=== PATIENT | male | born 1965 | race Caucasian/White ===

== ENCOUNTER 2016-06-17 19:37 | Emergency (ER) | payer BC ==
[2016-06-17] MEDS ORDERED: KETOROLAC TROMETHAMINE 0.45% 4 DROP/0.4 ML DROPERETTE OS ONE (21:19)
[2016-06-17] MEDS ORDERED: ERYTHROMYCIN 0.5% OPH OINTMENT 3.5 GM TUBE OS ONE (21:40)
--- NOTE | 2016-06-17 21:43 | ER Document Report ---
HPI - HPI Patient complains to provider of: left eye irritation Onset: This morning Onset/Duration: Sudden Quality of pain: Achy Severity: Severe Pain Level: 5 Context: Patient presents emergency department with complaints of left eye irritation. Patient reports he was working on his car with goggles on this morning. He removed the goggles something fell in his eye. He is not sure if it paint dirt or rust. Patient denies wearing contacts. Patient reports he went to urgent care where they were unable to see anything in his eye. They did stain his eye and placed him on eyedrops. He reports he had extreme pain when he left the urgent care so he came to the emergency department. Associated Symptoms: None Exacerbated by: Denies Relieved by: Denies Similar symptoms previously: Yes Recently seen / treated by doctor: Yes - DERM Skin Color: Normal Past Medical History - General Information source: Patient - Social History Smoking Status: Current Every Day Smoker Cigarette use (# per day): Yes Frequency of alcohol use: Occasional Drug Abuse: None Lives with: Family Family History: None - Past Medical History Cardiac Medical History: Reports: Hx Hypertension Renal/ Medical History: Reports: Hx Kidney Stones. Denies: Hx Peritoneal Dialysis Past Surgical History: Reports: Hx Orthopedic Surgery, Other - Lithotripsy Vertical Provider Document - CONSTITUTIONAL Agree With Documented VS: Yes Exam Limitations: No Limitations General Appearance: WD/WN, Mild Distress - rinsing his eye in the sink - HEENT HEENT: Atraumatic, Conjuctival Injection, Normocephalic, PERRLA - NECK Neck: Normal Inspection, Supple - RESPIRATORY Respiratory: Breath Sounds Normal, No Respiratory Distress O2 Sat by Pulse Oximetry: 98 - CARDIOVASCULAR Cardiovascular: Regular Rate - GI/ABDOMEN Gastrointestinal: Abdomen Soft - MUSCULOSKELETAL/EXTREMETIES Musculoskeletal/Extremeties: PAMELLA PRINCE - NEURO Level of Consciousness: Awake, Alert, Appropriate Motor/Sensory: No Motor Deficit - DERM Integumentary: Warm, Dry Course - Re-evaluation Re-evalutation: 06/18/16 Patient was allergic ketorolac drops for pain. Which did not help. He declined pain medication. He reports his eye started hurting once the tetracaine wore off. Dr. Desai was consulted. She did assess patient, agrees with plan of care patient to be discharged with erythromycin eye ointment instructed pt to place ice packs on eye follow-up with accountant on Sunday. He verbalized understanding to all instructions. - Vital Signs Vital signs: Temp Pulse Resp BP Pulse Ox 98.6 F 74 16 169/110 H 98 06/17/16 19:44 06/17/16 19:44 06/17/16 19:44 06/17/16 19:44 06/17/16 19:44 Procedures - Eye Procedure Left Eye Irrigated w/ Saline (ccs): 30 Acular drops administered: Left Fluorescein applied: Left Antibiotic Oinment/Drps Admin: Left eye Slit lamp used: No Notes: 06/17/16 23:59 pt reports immediate relief from pain after tetracaine applied. reports pain gone after lifting eyelid away from eye Eyes picture: 1 - some eyelid swelling Discharge - Discharge Clinical Impression: Irritation of left eye Condition: Stable Disposition: HOME, SELF-CARE Instructions: Ketorolac Tromethamine Eye Drops ([facility]), Erythromycin ([facility]), Opthalmology Additional Instructions: *You have been evaluated for eye irritation *Use eye ointment antibiotic- erythromycin half-inch ribbon 3 times a day to bottom lid *Ketorolac eyedrops 4 times a day *Good hand washing- Do not reuse wash clothes or towels after wiping eyes *Follow up with an accountant on Sunday *Return to ED for worsening condition, changes, needs, trouble with your vision , increased pain, redness/swelling to your eye Prescriptions: Erythromycin Base [Erythromycin 0.5% Oph Ointment 3.5 gm] 1 applic OS QID #1 tube
[2016-06-17] MEDS ORDERED: ERYTHROMYCIN 0.5% OPH OINT 1 GM UNIT DOSE OS ONE (22:08)
[2016-06-17 22:34] VITALS: BP 153/102
== END 2016-06-17 22:34 | disposition home or self-care (01) ==
LOC: ER 19:37
DX: H57.12 Ocular pain, left eye (principal); R22.0 Localized swelling, mass and lump, head; F17.210 Nicotine dependence, cigarettes, uncomplicated; I10 Essential (primary) hypertension; Z88.8 Allergy status to other drugs, medicaments and biological substances
CPT/HCPCS: 99283; J3490

== ENCOUNTER 2019-05-29 19:31 | Emergency (ER) | payer BC ==
[2019-05-29] MEDS ORDERED: KETOROLAC TROMETHAMINE INJ/PF 30 MG/1 ML SDV IV ONE (19:50)
[2019-05-29] MEDS ORDERED: ONDANSETRON HCL INJ/PF 4 MG/2 ML SDV IV ONE (19:50)
--- NOTE | 2019-05-29 19:51 | ER Document Report ---
ED Medical Screen (RME) - General Stated Complaint: FLANK PAIN Notes: Patient is a 53-year-old white male with a past medical history of renal calculi who presents to the emergency department the chief complaint of right flank pain. He states he is passed over 100 stones and that this feels the exact same. He admits to having a history of lithotripsy but no other urological intervention. He does see a urologist regularly. Request Toradol, states this typically works well for him. I have treated and performed a rapid initial assessment of this patient. A comprehensive ED assessment and evaluation of the patient, analysis of test results and completion of medical decision making process will be conducted by additional ED providers. PHYSICAL EXAMINATION: GENERAL: Well-appearing, well-nourished and in no acute distress. A&Ox4. Answers questions appropriately. - Related Data Allergies/Adverse Reactions: adhesive tape Allergy (Verified 06/17/16 19:44) aspirin Allergy (Verified 06/17/16 19:44) Past Medical History - Past Medical History Cardiac Medical History: Reports: Hx Hypertension Renal/ Medical History: Reports: Hx Kidney Stones. Denies: Hx Peritoneal Dialysis Past Surgical History: Reports: Hx Orthopedic Surgery, Other - Lithotripsy Physical Exam - Vital signs Vitals: Temp Pulse Resp BP Pulse Ox 97.4 F 59 L 18 187/111 H 100 05/29/19 19:36 05/29/19 19:36 05/29/19 19:36 05/29/19 19:36 05/29/19 19:36 Course - Vital Signs Vital signs: Temp Pulse Resp BP Pulse Ox 97.4 F 59 L 18 187/111 H 100 05/29/19 19:36 05/29/19 19:36 05/29/19 19:36 05/29/19 19:36 05/29/19 19:36
[2019-05-29 20:22] LABS: ABSOLUTE EOSINOPHILS # (AUTO) 0.2 10^3/uL (0.0-0.6); ABSOLUTE LYMPHOCYTES (AUTO) 2.2 10^3/uL (0.5-4.7); ABSOLUTE MONOCYTES (AUTO) 0.8 10^3/uL (0.1-1.4); ABSOLUTE NEUT (AUTO) 5.5 10^3/uL (1.7-8.2); BASOPHILS % (AUTO) 0.3 % (0-2); HEMATOCRIT 41.1 % (37.9-51.0); HEMOGLOBIN 14.3 g/dL (13.5-17.0); LYMPHOCYTES % (AUTO) 25.3 % (13-45); MEAN CORPUSCULAR HEMOGLOBIN 33.5 pg (27.0-33.4); MEAN CORPUSCULAR HGB CONC 34.7 g/dL (32.0-36.0); MEAN CORPUSCULAR VOLUME 97 fl (80-97); MONOCYTES % (AUTO) 9.4 % (3-13); PLATELET COUNT 245 10^3/uL (150-450); RED BLOOD COUNT 4.25 10^6/uL (4.35-5.55); RED CELL DISTRIBUTION WIDTH 13.1 % (11.5-14.0); TOTAL CELLS COUNTED % (AUTO) 100 %; WHITE BLOOD COUNT 8.8 10^3/uL (4.0-10.5)
[2019-05-29 20:29] LABS: APPEARANCE,URINE CLOUDY; BILIRUBIN,URINE NEGATIVE (NEGATIVE); COLOR,URINE YELLOW; GLUCOSE, URINE NEGATIVE (NEGATIVE); KETONES,URINE NEGATIVE (NEGATIVE); PROTEIN,URINE NEGATIVE (NEGATIVE); URINE SPECIFIC GRAVITY 1.018; UROBILINOGEN,URINE NEGATIVE mg/dL (<2.0)
[2019-05-29 20:39] LABS: ALBUMIN 4.7 g/dL (3.5-5.0); ALKALINE PHOSPHATASE 64 U/L (38-126); ANION GAP 8 (5-19); ASPARTATE AMINO TRANSFERASE 24 U/L (17-59); BILIRUBIN,TOTAL 0.3 mg/dL (0.2-1.3); BLOOD UREA NITROGEN 18 mg/dL (7-20); CALCIUM 9.9 mg/dL (8.4-10.2); CARBON DIOXIDE 30 mmol/L (22-30); CHLORIDE 101 mmol/L (98-107); GLUCOSE 115 mg/dL (75-110); POTASSIUM 4.4 mmol/L (3.6-5.0); TOTAL PROTEIN 7.8 g/dL (6.3-8.2)
--- NOTE | 2019-05-29 21:01 | RADIOLOGY REPORT (SQ) ---
EXAM DESCRIPTION: CLINICAL HISTORY: 53 years Male r flank pain COMPARISON: None. TECHNIQUE: Contiguous axial images obtained through the abdomen and pelvis without IV contrast. Reformatted images obtained. This exam was performed according to our department optimization program which includes automated exposure control, adjustment of the mA and/or kv according to patient size and/or use of iterative reconstruction technique. FINDINGS: The lung bases are clear. The liver appears unremarkable. The spleen and pancreas appear unremarkable. No adrenal masses. Tiny nonobstructing left renal calculi. Moderate right hydronephrosis with perinephric edema. There is a stone in the distal ureter on the right measuring 3 mm which is nonobstructing and an additional distal stone measuring 9 mm resulting in obstruction. Bladder is incompletely distended. The gallbladder is visualized. No aneurysmal dilatation of the aorta. No bowel obstruction. No free pelvic fluid. Unremarkable appendix. IMPRESSION: Moderate right hydronephrosis with an obstructing 9 mm distal stone and an additional nonobstructing 3 mm stone just cephalad Nonobstructing tiny left renal stones
[2019-05-29] MEDS ORDERED: HYDROMORPHONE HCL INJ/PF 2 MG/ML AMPULE IV ONE (21:52)
--- NOTE | 2019-05-29 21:53 | ER Document Report ---
ED GI/ - General Chief Complaint: Possible Kidney Stone Stated Complaint: FLANK PAIN Time Seen by Provider: 05/29/19 21:26 Mode of Arrival: Ambulatory Information source: Patient Notes: 53-year-old man presents to the emergency department with a history of right flank pain, he has a history of kidney stones. States that he has had multiple kidney stones in the past this episode began earlier tonight. - Related Data Allergies/Adverse Reactions: adhesive tape Allergy (Verified 05/29/19 19:56) morphine Allergy (Verified 05/29/19 19:56) Home Medications: percocet. flexeril. flomax. lisinopril Past Medical History - Social History Smoking Status: Never Smoker Family History: None Patient has suicidal ideation: No Patient has homicidal ideation: No - Past Medical History Cardiac Medical History: Reports: Hx Hypertension Renal/ Medical History: Reports: Hx Kidney Stones. Denies: Hx Peritoneal Dialysis Past Surgical History: Reports: Hx Orthopedic Surgery, Other - Lithotripsy Review of Systems - Review of Systems Notes: Constitutional: Negative for fever. HENT: Negative for sore throat. Eyes: Negative for visual changes. Cardiovascular: Negative for chest pain. Respiratory: Negative for shortness of breath. Gastrointestinal: Negative for abdominal pain, vomiting or diarrhea. Genitourinary: + Right flank pain Musculoskeletal: Negative for back pain. Skin: Negative for rash. Neurological: Negative for headaches, weakness or numbness. 10 point ROS negative except as marked above and in HPI. Physical Exam - Vital signs Vitals: Temp Pulse Resp BP Pulse Ox 97.4 F 59 L 18 187/111 H 100 05/29/19 19:36 05/29/19 19:36 05/29/19 19:36 05/29/19 19:36 05/29/19 19:36 - Notes Notes: PHYSICAL EXAMINATION: Physical Exam: General: Well-nourished well-developed 83-year-old man in moderate distress secondary to flank pain i HEENT: NC/AT, pupils equal round and reactive to light, MM moist,nares clear, oropharynx clear, airway patent Neck: supple, no adenopathy, no masses. Good range of motion Lungs: clear, no wheezing, no rales no rhonchi CVS: Regular rate and rhythm no murmur gallop or rub Abdomen: Soft, active, nontender, no masses, no hepatosplenomegaly Back: + Right flank tenderness. Ext: No edema, clubbing or cyanosis. Neuro: Alert and responsive, moving all 4 extremities on command, cranial nerves intact, no focal findings Skin: Intact no open lesions, no rash PSYCH: Normal mood, normal affect. Course - Re-evaluation Re-evalutation: 05/29/19 23:12 Patient presents with right flank pain. Apparently ongoing for approximately 1 week. X-ray studies reveal a 9 mm right ureter stone with hydronephrosis. I explained this finding to the patient and also the other nonpathologic stones found on imaging. Patient will need follow-up with urology, continue to Flomax and anti-inflammatory medications as prescribed. - Vital Signs Vital signs: Temp Pulse Resp BP Pulse Ox 97.4 F 59 L 18 187/111 H 100 05/29/19 19:36 05/29/19 19:36 05/29/19 19:36 05/29/19 19:36 05/29/19 19:36 - Laboratory Result Diagrams: 05/29/19 20:05 05/29/19 20:05 Laboratory results interpreted by me: 05/29/19 05/29/19 20:05 20:05 RBC 4.25 L MCH 33.5 H Glucose 115 H - Diagnostic Test Radiology reviewed: Image reviewed, Reports reviewed - Moderate right hydronephrosis with obstructing 9 mm distal stone and additional nonobstructing 3 mm stone is just cephalad. There are nonobstructing stones noted in the left renal tissue. Discharge - Discharge Clinical Impression: Right flank pain, Renal stone, Hydronephrosis of right kidney Condition: Good Disposition: HOME, SELF-CARE Instructions: Toradol Injection ([facility]), Antinausea Medication ([facility]), Oral Narcotic Medication ([facility]), Kidney Stone ([facility]) Additional Instructions: You are diagnosed with a kidney stone in the emergency department tonight. Please continue Flomax, use ibuprofen and Zofran for pain control Follow-up with urology. Given the size of the stone you may need urology to de termine whether the lithotripsy is the best next treatment. HOME CARE INSTRUCTIONS & INFORMATION: Thank you for choosing us for your medical needs. We hope you're satisfied with the care you received. After you leave, you must properly care for your problem and, at the same time, observe its progress. Any condition can change. Some illnesses can change rapidly over hours or days. If your condition worsens, return to the Emergency Department or see your physician promptly. ABOUT YOUR X-RAYS AND EKG'S: If you had an EKG or X-rays taken, they have been read by the Emergency Physician. The X-rays and EKG's will also be read by a Radiologist or Graphic Manager within 24 hours. If discrepancies are noted, you will be notified by telephone. Please be certain the ED has a correct telephone number & address where you can be reached. Also, realize that some fractures or abnormalities do not show up on initial X-rays. If your symptoms continue, see your physician. ABOUT YOUR LABORATORY TEST: If you had laboratory tests, the results have been reviewed by the Emergency Physician. Some test results (for example cultures) may not be available for several days. You will be contacted if any test result shows you need additional treatment. Please be certain the ED has a correct tel [facility] number and address where you can be reached. ABOUT YOUR MEDICATIONS: You will receive instructions on how to take your medicine on the prescription label you receive. Additional information may be provided by the Pharmacy. If you have questions afterwards, call the ED for clarification or further instructions. Some prescribed medications may cause drowsiness. Do not perform tasks such as driving a car or operating machinery without consulting your Pharmacist. If you feel you need a refill of pain medication, your condition will need re-evaluation. Please do not call for a refill of any medication. ABOUT YOUR SIGNATURE: Signature of this document acknowledges to followin. Understanding that you received emergency treatment and that you may be released before al medical problems are known or treated. Please be certain the ED has a correct phone number & address where you can be reached. 2. Acknowledgement that you will arrange for follow-up care as recommended. 3. Authorization for the Emergency Physician to provide information to your follow-up Physician in order to maximize your care. AT ANY TIME, IF YOUR SYMPTOMS CHANGE SIGNIFICANTLY OR WORSEN OR YOU DEVELOP NEW SYMPTOMS, RETURN TO THE EMERGENCY DEPARTMENT IMMEDIATELY FOR RE-EVALUATION. OUR GOAL IS TO PROVIDE EXCELLENT MEDICAL CARE! WE HOPE THAT WE HAVE MET YOUR EXPECTATIONS DURING YOUR EMERGENCY DEPARTMENT VISIT AND THAT YOU FEEL YOU HAVE RECEIVED EXCELLENT CARE! Prescriptions: Ibuprofen [Motrin 800 mg Tablet] 800 mg PO Q8H PRN #30 tab PRN Reason: Ondansetron [Zofran Odt 4 mg Tablet] 1 - 2 tab PO Q4H PRN #15 tab.rapdis PRN Reason: For Nausea/Vomiting Referrals: DIANNE WASHINGTON MD [MANAGER [facility]] - Follow up as needed
[2019-05-29] MEDS ORDERED: HYDROCODONE/ACETAMINOPHEN 5-325 MG (6 TAB/ER DISP) PO PRN (23:21)
[2019-05-29 23:46] VITALS: BP 145/89
== END 2019-05-29 23:49 | disposition home or self-care (01) ==
LOC: ER 19:31
DX: N13.2 Hydronephrosis with renal and ureteral calculous obstruction (principal); R10.9 Unspecified abdominal pain; Z87.442 Personal history of urinary calculi; Z88.8 Allergy status to other drugs, medicaments and biological substances; Z79.899 Other long term (current) drug therapy; I10 Essential (primary) hypertension
CPT/HCPCS: 99284; 96374; 96375; 36415; 83690; 85025; 80053; 81001; 74176; J1885; J1170; J2405